=== PATIENT | male | born 1955 | race African-American/Black ===

== ENCOUNTER 2017-02-17 11:32 | Outpatient (CLI) | payer MEDICARE ==
[2017-02-17] VITALS (14 sets, daily range): BP systolic 94–179; BP diastolic 46–75; PULSE 55–86; RESP 18–24; TEMP 98–98.4; O2SAT 78–99; Ht 175.3 cm; Wt 114.4 kg
[~2017-02-17] VITALS: Ht 175.3 cm; Wt 114.4 kg
[~2017-02-17 11:32] MED LIST: ALBU8.5H INH; AMLO10TA2 PO; BUDE0.5A6 AEROSOL; BUDE10.2 INH; CLON0.1T PO; DiphenhydrAMINE 50 MG/ML INJECTION IV ONE; FLEC100T21 PO; HYDR25TA PO; IPRA3AMP AEROSOL; ISOS60TA4 PO; LEVO125T4 PO; LUBI24CA7 PO; NITR0.4T SL; NORMAL SALINE 1,000 ML IV SCH; PANT40TA PO; POLY17PO6 PO; PRED20TA PO; PROM25TA7 PO; [UNRECOGNIZED DRUG - CODE] PO
--- NOTE | 2017-02-17 11:40 | NUR ---
ARRIVAL AMBULATORY TO ROOM 124. O2 RA. PATIENT ALERT AND ORIENTED X3. PATIENT DOES NOT APPEAR TO BE IN ANY DISTRESS AT THIS TIME. CHRISTEL DOSS RN NOTIFIED OF PATIENT'S ARRIVAL.
[2017-02-17 12:10] LABS: HGB - HEMOGLOBIN 15.6 GM/DL (13.5-17.5); MEAN CORPUSCULAR HGB 29.7 UUG (26-34); MEAN CORPUSCULAR HGB CONC(MCHC 33.2 GM/DL (31-37); MEAN CORPUSCULAR VOLUME 89.5 UM3 (80-100); MEAN PLATELET VOLUME 9.8 UM3 (9.4-12.4); RED BLOOD COUNT 5.25 M/MM3 (4.50-5.90)
[2017-02-17] MEDS ORDERED: ASPI81TA2 PO (12:16)
[2017-02-17 12:22] LABS: ANION GAP 13 MEQ/L (5-15); BUN/CREATININE RATIO 14 RATIO (6-26); CHLORIDE 108 MEQ/L (98-107); CO2 - CARBON DIOXIDE 23 MEQ/L (22-30); CREATININE 0.9 MG/DL (0.8-1.5); GLOMERULAR FILTRATION RATE 86; GLUCOSE 148 MG/DL (75-110); POTASSIUM 4.1 MEQ/L (3.6-5); SODIUM 144 MEQ/L (134-144)
[2017-02-17 12:32] LABS: BASOPHILS # (MANUAL) 0.1 T/MM3 (0-0.2); LYMPHOCYTES # (MANUAL) 0.7 T/MM3 (1-4.8); NEUTROPHILS #(MANUAL)-ABSOLUTE 12.2 T/MM3 (1.8-7.7); TOTAL CELLS COUNTED 100 %
--- NOTE | 2017-02-17 14:30 | NUR ---
CM THIS WORKER MET WITH PT IN ROOM. PT LAYING IN BED. NO OTHERS PRESENT AT THIS TIME. THIS WORKER INTRODUCED SELF AND ROLE OF CASE MANAGEMENT. PT DENIED ANY DISCHARGE NEEDS AT THIS TIME. PT IS GOING TO BE PICKED UP BY ONE OF HIS DAUGHTERS. PT WAS GIVEN THIS WORKER'S CONTACT INFORMATION AND ENCOURAGED TO CONTACT THIS WORKER WITH ANY NEEDS.
[2017-02-17] MEDS ORDERED: HEPARIN 1,000units in NS 500ml BAG IV ONE (14:52)
[2017-02-17] MEDS ORDERED: LIDOCAINE 1% (10mg/ml) 30ml SDV ONE (14:52)
--- NOTE | 2017-02-17 14:55 | NUR ---
TO KEEPER HELPER PATIENT TAKEN TO KEEPER HELPER AT THIS TIME VIA KEEPER HELPER STAFF AND CART. PATIENT STABLE AND ON ROOM AIR AT TIME OF TRANSFER. BP CUFF, CHART, AND CONSENT SENT WITH PATIENT. WILL CONTINUE TO MONITOR.
[2017-02-17] MEDS ORDERED: MIDAZOLAM 2mg/2ml INJECTION ONE (15:05)
[2017-02-17] MEDS ORDERED: FENTANYL 100mcg/2ml INJECTION ONE (15:05)
[2017-02-17] MEDS ORDERED: DiphenhydrAMINE 50 MG/ML INJECTION ONE (15:05)
[2017-02-17] MEDS ORDERED: VERAPAMIL 5mg/2ml INJECTION IV ONE (15:06)
[2017-02-17] MEDS ORDERED: NITROGLYCERIN 50mg/10ml INJECTION IV ONE (15:06)
[2017-02-17] MEDS ORDERED: SALINE FLUSH 10ml SYRINGE ONE (15:07)
[2017-02-17] MEDS ORDERED: BISACODYL 5 MG E.C. TABLET PO PRN (15:45)
[2017-02-17] MEDS ORDERED: ONDANSETRON 4mg/2ml INJECTION IV PRN (15:45)
[2017-02-17] MEDS ORDERED: MAG-AL + SIM LIQUID 30 ML UDC PO PRN (15:45)
[2017-02-17] MEDS ORDERED: MORPHINE SULFATE 4 MG SYRINGE IV PRN ×2 (15:45)
[2017-02-17] MEDS ORDERED: ATROPINE 1 MG/ML VIAL IV PRN (15:45)
[2017-02-17] MEDS ORDERED: HYDROCODONE/APAP 5 mg/325 mg TABLET PO PRN (15:45)
[2017-02-17] MEDS ORDERED: ACETAMINOPHEN 325 MG TABLET PO PRN (15:45)
[2017-02-17] MEDS ORDERED: PROMETHAZINE 50 MG INJECTION IV PRN (15:45)
[2017-02-17] MEDS ORDERED: LORAZEPAM 0.5 MG TABLET PO PRN (15:45)
[2017-02-17] MEDS ORDERED: NITROGLYCERIN 0.4 MG SUBLINGUAL TABLET SL PRN (15:45)
[2017-02-17] MEDS ORDERED: MILK OF MAGNESIA 30 ML SUSP PO PRN (15:45)
[2017-02-17] MEDS ORDERED: METOCLOPRAMIDE 10mg/2ml INJECTION IV PRN (15:45)
[2017-02-17] MEDS ORDERED: BISACODYL 10 MG SUPPOSITORY RECTALLY PRN (15:45)
[2017-02-17] MEDS ORDERED: LORAZEPAM 2 MG/ML INJECTION IV PRN (15:45)
--- NOTE | 2017-02-17 15:50 | NUR ---
FROM CATERING ADMINISTRATIVE ASSISTANT PATIENT ARRIVED FROM CATERING ADMINISTRATIVE ASSISTANT AT THIS TIME VIA CART AND CATERING ADMINISTRATIVE ASSISTANT STAFF. PATIENT ABLE TO TRANSFER SELF OVER TO SURGICAL UNIT BED. RIGHT WRIST CLEAN, DRY, INTACT. NO S/S OF BLEEDING, HEMATOMA, EDEMA. WILL CONTINUE TO MONITOR.
--- NOTE | 2017-02-17 19:19 | NUR ---
DISMISSAL PATIENT DISMISSED TO THE MAIN HOSPITAL ENTRANCE. PATIENT AMBULATORY. PATIENT'S DAUGHTER WAS THE [employer] [facility]. PATIENT STABLE AND ON ROOM AIR AT TIME OF DISMISSAL. PERSONAL BELONGINGS RETURNED PRIOR TO D/C. IV CATHETER REMOVED BY THIS RN. IV CATHETER TIP INTACT. D/C INSTRUCTIONS REVIEWED PRIOR TO D/C. TOPICS DISCUSSED INCLUDED: INCISION CARE, S/S TO REPORT, FOLLOW UP APPOINTMENTS, AND MEDICATIONS. GAUZE/TEGADERM DRESSING AND SPLIT APPLIED.
--- NOTE | 2017-02-17 21:00 | CVPROF ---
CARDIAC CATHETERIZATION DATE OF PROCEDURE February 17, 2017 The patient is a very pleasant 61-year-old gentleman who has been having increasing chest pressure, tightness, heaviness and was referred for further evaluation by cardiac catheterization and possible intervention. Informed consent was obtained after explaining the procedure and the potential risks to the patient who agreed to proceed with the procedure. PROCEDURE 1. Left heart catheterization. 2. Coronary angiography. 3. Left ventriculography. TECHNIQUE He was prepped and draped in the usual sterile techniques. Conscious sedation was performed using Versed and fentanyl. 1% lidocaine was used for local anesthesia. Using modified Seldinger technique, arterial access was obtained into the right radial artery with placement of a 6-Fr arterial sheath. 3000 units of heparin, 300 mcg of nitroglycerin, and 2.5 mg of verapamil were given through the arterial sheath. LEFT VENTRICULOGRAPHY Left ventriculography in single-plane ELIZONDO shallow projection showed normal LV systolic function with ejection fraction of about 55% with no mitral regurgitation or gradient across the aortic valve. LVEDP was about 24. 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 The patient tolerated the procedure well with no complications. IMPRESSION 1. Mild coronary irregularities with no significant lesions. 2. Normal LV systolic function with ejection fraction of about 55%. PLAN Medical management. CYNDID
== END 2017-02-17 19:19 | disposition home or self-care (01) ==
LOC: CATH 11:32 → SRG 11:33 → CATH 19:19
PROVIDERS: ATTEND Internal Medicine Cardiovascular Disease
DX: Q24.5 Malformation of coronary vessels (principal); I25.10 Atherosclerotic heart disease of native coronary artery without angina pectoris; R07.2 Precordial pain; I48.0 Paroxysmal atrial fibrillation; I47.1 Supraventricular tachycardia; I10 Essential (primary) hypertension; Z79.82 Long term (current) use of aspirin; Z79.52 Long term (current) use of systemic steroids; Z79.899 Other long term (current) drug therapy
CPT/HCPCS: 36415; 80048; 85025; 93005; 93458; C1769; C1893; J1200; J1644; J2250; J3010; J3490; J7030; Q9967